=== PATIENT | female | born 2000 | race Caucasian/White ===

== ENCOUNTER 2020-06-12 12:07 | Inpatient (IN) | payer OTHER ==
[2020-06-18] MEDS ORDERED: Carboprost 250 MCG/ML AMP IM PRN (21:21)
[2020-06-18] MEDS ORDERED: Ondansetron PF 4 MG/2 ML Vial IVP PRN (21:21)
[2020-06-18] MEDS ORDERED: Butorphanol Tartrate 1 MG/ML VIAL SLOW IVP PRN (21:21)
[2020-06-18] MEDS ORDERED: Acetaminophen 500 MG TAB PO PRN (21:21)
[2020-06-18] MEDS ORDERED: Promethazine HCl 25 MG/ML VIAL IM PRN (21:21)
[2020-06-18] MEDS ORDERED: Ibuprofen 800 MG TAB PO PRN (21:21)
[2020-06-18] MEDS ORDERED: HYDROcodone/Acetaminophen 5/325 mg Tablet PO PRN (21:21)
[2020-06-18] MEDS ORDERED: Methylergonovine 0.2 MG/ML VIAL IM PRN (21:21)
[2020-06-18] MEDS ORDERED: Misoprostol 200 MCG TAB PR PRN (21:21)
[2020-06-18] MEDS ORDERED: Diphenoxylate HCl/Atropine Tablet PO PRN (21:21)
[2020-06-18] MEDS ORDERED: Lidocaine 1% (PF) 30 ML VIAL SC PRN (21:21)
[2020-06-18] MEDS ORDERED: hydrALAZINE 20 MG/ML VIAL SLOW IVP PRN (21:21)
[2020-06-18] MEDS ORDERED: Penicillin G Potassium 5 MILL.UNITS in Sodium Chloride 0.9% 100 ML IVPB SCH (21:30)
[2020-06-18 21:45] VITALS: BMI 40.3
[2020-06-18] MEDS ORDERED: Misoprostol 100 MCG TAB ONE (21:49)
[2020-06-18] MEDS: Lactated Ringer's 1,000 ML IV SCH (21:50)
[2020-06-18 21:53] LABS: Mean Corpuscular HGB CONC 34.1 g/dL (32.0-36.0); Mean Corpuscular Hemoglobin 30.8 pg (27.0-33.0); Mean Corpuscular Volume 90.3 fl (81.6-98.3); Mean Platelet Volume 11.1 fl (7.4-10.4); Platelet Count 290 10x3/uL (150-450); RBC Distribution Width 12.8 % (11.5-14.5)
[2020-06-18] MEDS: Misoprostol 100 MCG TAB VAG SCH (22:05)
[2020-06-18 22:11] LABS: ALT (SGPT) 23 U/L (8-55); AST (SGOT) 27 U/L (5-34); Albumin 3.4 g/dL (3.5-5.0); Alkaline Phosphatase 167 U/L (40-100); Anion Gap 13 mmol/L (10-20); BUN (Urea Nitrogen) 6 mg/dL (7.0-18.7); Bilirubin, Total 0.4 mg/dL (0.2-1.2); Calc. Creatinine Clearance 292 mL/min (70-130); Calcium 8.7 mg/dL (7.8-10.44); Carbon Dioxide 21 mmol/L (22-29); Chloride 106 mmol/L (98-107); Globulin 2.7 g/dL (2.4-3.5); Glucose 80 mg/dL (70-105); Potassium 3.8 mmol/L (3.5-5.1); Protein, Total 6.1 g/dL (6.0-8.3); Sodium 136 mmol/L (136-145)
[2020-06-18 22:28] LABS: Protein, Urine Random Quant Less than 10 mg/dL (1-14)
[2020-06-18 22:31] LABS: Syphilis Antibody Nonreactive (Nonreactive); Syphilis Antibody Index 0.02 S/CO (<1.00 Non-Reactive)
[2020-06-18 22:32] LABS: Hep B Surf Ag Non-Reactive S/CO (NonReactive)
[2020-06-18 22:46] LABS: HBSAg Index 0.25 S/CO (0-0.99)
[2020-06-19] MEDS: Penicillin G 2.5 MILL.units 2.5 MILL.UNITS in Premix Bag 1 BAG IVPB SCH ×6 (02:30→22:47)
[2020-06-19] MEDS: Misoprostol 100 MCG TAB VAG SCH ×2 (02:51→07:40)
[2020-06-19] MEDS: Lactated Ringer's 1,000 ML IV SCH ×3 (06:22→22:47)
[2020-06-19] MEDS ORDERED: Fentanyl 4 mcg/Bup 0.1% Cadd 100 ML ONE ×2 (08:44→15:53)
[2020-06-19] MEDS ORDERED: Bupivacaine 0.25% HCL 30 ML VIAL ONE (08:51)
[2020-06-19] MEDS: NS w/ Oxytocin 30 units 500 ML IV PRN (11:01)
[2020-06-19] MEDS ORDERED: Acetaminophen 325 MG TAB PO PRN (12:57)
[2020-06-19] MEDS ORDERED: Lactated Ringer's 500 ML IV PRN (12:57)
[2020-06-19] MEDS ORDERED: Ondansetron PF 4 MG/2 ML Vial IVP PRN (12:57)
[2020-06-19] MEDS ORDERED: Naloxone HCl 0.4 mg/ml Vial IVP PRN ×2 (12:57)
[2020-06-19] MEDS ORDERED: diphenhydrAMINE 50 MG/ML VIAL IVP PRN (12:57)
[2020-06-19] MEDS ORDERED: Eucerin (Mineral Oil/Petrolatum,White) 30 gm Jar TOP PRN (12:57)
[2020-06-19] MEDS ORDERED: Promethazine HCl 25 MG/ML VIAL IM PRN (12:57)
[2020-06-19] MEDS ORDERED: Communication Order-Pharmacy FS SCH (13:00)
[2020-06-19] MEDS ORDERED: Fentanyl 4 mcg/Bupivacaine 0.1% Cassette 100 ML EPIDURAL SCH (13:00)
[2020-06-19] MEDS ORDERED: ePHEDrine Sulfate 50 MG/10 ML VIAL SLOW IVP PRN (13:12)
[2020-06-20] MEDS ORDERED: Misoprostol 200 MCG TAB ONE (00:17)
[2020-06-20] MEDS ORDERED: Lidocaine 1% (PF) 30 ML VIAL ONE (01:47)
[2020-06-20] MEDS ORDERED: Carboprost 250 MCG/ML AMP ONE ×2 (02:10→02:23)
[2020-06-20] MEDS ORDERED: Methylergonovine 0.2 MG/ML VIAL ONE (02:10)
[2020-06-20] MEDS ORDERED: Ondansetron PF 4 MG/2 ML Vial ONE (02:18)
[2020-06-20] MEDS: NS w/ Oxytocin 30 units 500 ML IV PRN (02:47)
[2020-06-20] MEDS ORDERED: Diphenoxylate HCl/Atropine Tablet PO PRN (03:07)
[2020-06-20] MEDS ORDERED: Diphenoxylate HCl/Atropine Tablet PO SCH (03:15)
[2020-06-20] MEDS ORDERED: cloNIDine 0.1 MG TAB PO PRN (04:00)
[2020-06-20] MEDS ORDERED: Promethazine HCl 25 MG/ML VIAL IM PRN (04:22)
[2020-06-20] MEDS ORDERED: Lanolin Ointment 7 GM TUBE TOP PRN (04:22)
[2020-06-20] MEDS ORDERED: Ondansetron PF 4 MG/2 ML Vial IVP PRN (04:22)
[2020-06-20] MEDS ORDERED: HYDROcodone/Acetaminophen 5/325 mg Tablet PO PRN ×2 (04:22)
[2020-06-20] MEDS ORDERED: Adacel (T-DAP) 0.5 ML SYRINGE IM ONE (04:22)
[2020-06-20] MEDS ORDERED: Bisacodyl 10 MG SUPP PR PRN (04:22)
[2020-06-20] MEDS ORDERED: diphenhydrAMINE 25 MG CAP PO PRN (04:22)
[2020-06-20] MEDS ORDERED: Milk Of Magnesia 30 ML UDCUP PO PRN (04:22)
[2020-06-20] MEDS ORDERED: hydrALAZINE 20 MG/ML VIAL SLOW IVP PRN (04:22)
[2020-06-20] MEDS ORDERED: NS w/ Oxytocin 30 units 500 ML IV SCH (05:00)
[2020-06-20] MEDS: Penicillin G 2.5 MILL.units 2.5 MILL.UNITS in Premix Bag 1 BAG IVPB SCH (07:43)
[2020-06-20] MEDS: Ferrous Sulfate 325 MG TAB PO SCH ×2 (07:45→15:26)
[2020-06-20] MEDS: Docusate Calcium (SURFAK) 240 MG CAP PO SCH ×2 (09:17→21:58)
[2020-06-20] MEDS: Prenatal Vitamin 1 TAB PO SCH (09:17)
[2020-06-20] MEDS: Ibuprofen 800 MG TAB PO SCH ×2 (09:18→16:09)
[2020-06-20] MEDS ORDERED: Benzocaine-Menthol 82.5 ML CAN TOP PRN (12:28)
[2020-06-20] MEDS ORDERED: Bupivacaine 0.25% HCL 30 ML VIAL ONE (19:45)
[2020-06-21] MEDS: Ibuprofen 800 MG TAB PO SCH ×3 (00:04→15:20)
[2020-06-21 06:46] LABS: Hemoglobin 9.5 g/dL (12.0-15.5); Mean Corpuscular HGB CONC 33.2 g/dL (32.0-36.0); Mean Corpuscular Hemoglobin 30.1 pg (27.0-33.0); Mean Corpuscular Volume 90.5 fl (81.6-98.3); Mean Platelet Volume 11.1 fl (7.4-10.4); Platelet Count 228 10x3/uL (150-450); RBC Distribution Width 13.2 % (11.5-14.5); Red Blood Cell (RBC) Count 3.16 10x6/uL (3.90-5.03); White Blood Cell (WBC) Count 14.6 10x3/uL (3.5-10.5)
[2020-06-21] MEDS: Ferrous Sulfate 325 MG TAB PO SCH (10:54)
[2020-06-21] MEDS: Prenatal Vitamin 1 TAB PO SCH (10:54)
[2020-06-21] MEDS: Docusate Calcium (SURFAK) 240 MG CAP PO SCH (10:54)
[2020-06-21 10:58] VITALS: BP 131/86; TEMP 98.5
== END 2020-06-21 17:30 | disposition home or self-care (01) | DRG 806 ==
LOC: EDSTATUS 06-18 12:53 → CSHLD 06-18 19:56 → CSHPP 06-20 05:19
PROVIDERS: ADMIT Family Medicine; ATTEND Family Medicine
PROC: 3E0D7GC Introduction of Other Therapeutic Substance into Mouth and Pharynx, Via Natural or Artificial Opening (ICD-10-PCS; 2020-06-18)
PROC: 10E0XZZ Delivery of Products of Conception, External Approach (ICD-10-PCS; principal; 2020-06-20)
PROC: 0W8NXZZ Division of Female Perineum, External Approach (ICD-10-PCS; 2020-06-20)
DX: O48.0 Post-term pregnancy (principal); O72.1 Other immediate postpartum hemorrhage; Z37.0 Single live birth; O99.824 Streptococcus B carrier state complicating childbirth; Z20.822 Contact with and (suspected) exposure to COVID-19; Z3A.40 40 weeks gestation of pregnancy
CPT/HCPCS: 36415; 51702; 80053; 82570; 84156; 85027; 86780; 86850; 86900; 86901; 87340; J0595; J2210; J2405; J2540; J2590; J3490; S0020

== ENCOUNTER 2020-06-13 15:01 | Outpatient (CLI) | payer OTHER ==
[2020-06-14 01:24] LABS: SARS-CoV-2 PCR by NAA Not Detected (NotDetected)
== END 2020-06-13 15:02 | disposition home or self-care (01) ==
LOC: CSHLAB 15:01
PROVIDERS: ATTEND Family Medicine
DX: Z20.822 Contact with and (suspected) exposure to COVID-19 (principal)
CPT/HCPCS: 87635; U0003; U0005